=== PATIENT | female | born 1985 | race Caucasian/White ===

== ENCOUNTER 2017-02-05 12:52 | Emergency (ER) | payer SELFPAY ==
[2017-02-05 13:18] VITALS: TEMP 97.7
--- NOTE | 2017-02-05 13:27 | RAD ---
Study: 5 views of the left foot and left ankle. Indication: twisted ankle/foot Comparison: None. Impression: Soft tissue swelling lateral ankle. No ankle fracture. Moderate tibiotalar joint effusion. Oblique fracture distal shaft fifth metatarsal with 2 mm medial displacement distal fracture fragment. Electronically signed by: Rom Real MD 02/05/2017 1:27 PM CDT
--- NOTE | 2017-02-05 13:44 | ED.PDOC ---
History of Present Illness - General Chief Complaint: Lower Extremity Injury Stated Complaint: left ankle pain Time Seen by Provider: 02/05/17 13:03 Source: patient Exam Limitations: no limitations - History of Present Illness Initial Comments: The patient is a 31-year-old female presenting to the emergency room after having tripped and fallen at home while twisting her left foot and ankle. She has previously sprained that ankle before. She has pain primarily to the lateral aspect of the foot. There is some swelling. She appears to be neurovascularly intact. Pulses are palpable. No other injuries. Occurred: just prior to arrival Pain - Lower Extremity: moderate: Left Foot Method of Injury: fell, twisted Improving Factors: nothing, immobilization Worsening Factors: nothing, movement Allergies/Adverse Reactions: Allergies NO KNOWN ALLERGY Allergy (Verified 05/29/16 13:35) Home Medications: Ambulatory Orders Adkmqaazrezud-Xbrn-Ntnicgidgh [Fioricet] 1 ea PO Q8H PRN #21 tab 02/05/17 Review of Systems - Review of Systems Constitutional: States: no symptoms reported EENTM: States: no symptoms reported Respiratory: States: no symptoms reported Cardiology: States: no symptoms reported Gastrointestinal/Abdominal: States: no symptoms reported Genitourinary: States: no symptoms reported Musculoskeletal: States: see HPI Skin: States: no symptoms reported Neurological: States: no symptoms reported All other Systems: No Change from Baseline Past Medical History (General) - Patient Medical History Hx Seizures: No Hx Stroke: No Hx Dementia: No Hx Asthma: No Hx of COPD: No Hx Cardiac Disorders: No Hx Congestive Heart Failure: No Hx Pacemaker: No Hx Hypertension: No Hx Thyroid Disease: No Hx Diabetes: No Hx Gastroesophageal Reflux: No Hx Renal Disease: No Hx Cancer: No Hx of HIV: No Hx Hepatitis C: No Hx MRSA: No - Vaccination History Hx Tetanus, Diphtheria Vaccination: No Hx Influenza Vaccination: No Hx Pneumococcal Vaccination: No - Social History Hx Tobacco Use: No Hx Chewing Tobacco Use: No Hx Alcohol Use: No Hx Substance Use: No Hx Substance Use Treatment: No Hx Depression: No Hx Physical Abuse: No Hx Emotional Abuse: No Hx Suspected Abuse: No - Female History Patient is a Female of Child Bearing Age (10 -59 yrs old): Yes Hx Last Menstrual Period: 09/18/14 Patient : No Expected Date of Delivery:: 09/27/15 Family Medical History - Family History Mother Family History: Unknown Living Status: Still Living Father Name: Bob Johnson Age (years): 61 Living Status: Still Living Hx Family Stroke: Yes - Pt states father has had multiple strokes but does not know dates. Grandparents Name: Karina Johnson Age (years): 85 Living Status: Still Living Hx Family Diabetes: Yes - DM2 Hx Family Cancer: Yes - Breast cancer Brother Name: Bob Johnson Jr. Age (years): 38 Living Status: Still Living Hx Family Stroke: Yes Age of Onset (years of age): 36 Physical Exam - Physical Exam General Appearance: Alert, No apparent distress Eyes, Ears, Nose, Throat: PERRL/EOMI Neck: full range of motion, supple Cardiovascular/Respiratory: normal peripheral pulses, no respiratory distress Back: normal inspection Thigh/Hip: normal inspection, non-tender, no evidence of injury, normal ROM Leg: normal inspection, non-tender, no evidence of injury, normal ROM Knee: normal inspection, non-tender, no evidence of injury, normal ROM Ankle: normal inspection, non-tender, no evidence of injury, normal ROM Foot: other - see history of present illness Neuro/Tendon: normal sensation, normal motor functions, normal tendon functions Mental Status: alert, oriented x 3 Skin: normal color Comments: Vital Signs - 24 hr 02/05/17 13:15 Temperature 97.7 F Pulse Rate [ 89 Left Brachial] Respiratory 16 Rate Blood Pressure 131/76 [Left Arm] O2 Sat by Pulse 96 Oximetry Progress - Progress Progress: 02/05/17 13:44 the patient is a 31-year-old female presenting to the emergency room after having hurt her left foot and ankle during a fall at home. She sustained a spiral fracture of the fifth metatarsal of the left foot. There are no lacerations. The patient will be placed in a walking boot for the next month. If it is failing to start to heal over the next few weeks and she may have to go on crutches. the patient will be written for Fioricet to help with pain control. ER warnings were given for any acute worsening. Follow up with primary care doctor in 2 weeks. Departure - Departure Clinical Impression: Metatarsal fracture Qualifiers: Encounter type: initial encounter Metatarsal bone: fifth Fracture type: closed Fracture alignment: displaced Laterality: left Qualified Code(s): S92.352A - Displaced fracture of fifth metatarsal bone, left foot, initial encounter for closed fracture Disposition: Discharge to Home or Self Care Condition: Fair Departure Forms: ED Discharge - Pt. Copy, Patient Portal Self Enrollment Instructions: Foot Fracture Diet: regular diet Activity: increase activity as tolerated Referrals: KIKO MILLS [Primary Care Provider] - 1-2 Weeks Prescriptions: Vrqckjrxwdjxy-Mjkk-Khvfqdhuac [Fioricet] 1 ea PO Q8H PRN #21 tab PRN Reason: Pain Home Medications: Ambulatory Orders Dgqcminfyowiu-Rfxw-Oschnfwmcn [Fioricet] 1 ea PO Q8H PRN #21 tab 02/05/17 Additional Instructions: the patient is a 31-year-old female presenting to the emergency room after having hurt her left foot and ankle during a fall at home. She sustained a spiral fracture of the fifth metatarsal of the left foot. There are no lacerations. The patient will be placed in a walking boot for the next month. If it is failing to start to heal over the next few weeks and she may have to go on crutches. the patient will be written for Fioricet to help with pain control. ER warnings were given for any acute worsening. Follow up with primary care doctor in 2 weeks.
[2017-02-05 14:38] VITALS: BP 130/58; O2SAT 100
== END 2017-02-05 14:25 | disposition home or self-care (01) ==
LOC: ER 12:52
DX: S92.352A Displaced fracture of fifth metatarsal bone, left foot, initial encounter for closed fracture (principal); W01.0XXA Fall on same level from slipping, tripping and stumbling without subsequent striking against object, initial encounter; Y92.009 Unspecified place in unspecified non-institutional (private) residence as the place of occurrence of the external cause

== ENCOUNTER 2020-01-06 20:51 | Emergency (ER) | payer SELFPAY ==
--- NOTE | 2020-01-06 21:46 | RAD ---
EXAM: XR Left Elbow Complete, 3 Views CLINICAL HISTORY: 34 years old Female; swelling and bruising to left elbow . TECHNIQUE: Frontal, lateral and oblique views of the left elbow. COMPARISON: No relevant prior studies available. FINDINGS: BONES/JOINTS: No acute fracture seen. Normal bony alignment. SOFT TISSUES: Stranding in the subcutaneous fat overlying the posterior distal humerus consistent with ecchymosis. No radiopaque foreign body seen. IMPRESSION: - No acute fracture seen. Thank you for allowing us to participate in the care of this patient. Electronically signed by: Joseph Harmon MD 01/06/2020 9:44 PM CDT
--- NOTE | 2020-01-06 22:42 | ED.PDOC ---
History of Present Illness - General Time Seen by Provider: 01/06/20 22:39 Source: patient Additional Information: 34yo F presents for arm pain. The patient reports she was kicked by a horse near her elbow in the left arm today. She was unloading a horse at the time. She is sore in the area with bruising. She has normal ROM of her elbow. Normal sensation in her hand. No other reported area or pain or injury. - History of Present Illness Occurred: this afternoon Method of Injury: direct blow Improving Factors: nothing Allergies/Adverse Reactions: Allergies NO KNOWN ALLERGY Allergy (Verified 05/29/16 13:35) Home Medications: Ambulatory Orders Qklqgbqewzvct-Fvby-Hngakkxoqk [Fioricet] 1 ea PO Q8H PRN #21 tab 02/05/17 Review of Systems - Review of Systems Constitutional: Denies: chills, fever Respiratory: States: no symptoms reported Cardiology: States: no symptoms reported Gastrointestinal/Abdominal: States: no symptoms reported Musculoskeletal: States: muscle pain. Denies: back pain, joint swelling, neck pain Skin: States: change in color - Bruising. Denies: lesions Past Medical History (General) - Patient Medical History Hx Seizures: No Hx Stroke: No Hx Dementia: No Hx Asthma: No Hx of COPD: No Hx Cardiac Disorders: No Hx Congestive Heart Failure: No Hx Pacemaker: No Hx Hypertension: No Hx Thyroid Disease: No Hx Diabetes: No Hx Gastroesophageal Reflux: No Hx Renal Disease: No Hx Cancer: No Hx of HIV: No Hx Hepatitis C: No Hx MRSA: No - Vaccination History Hx Tetanus, Diphtheria Vaccination: No Hx Influenza Vaccination: No Hx Pneumococcal Vaccination: No - Social History Hx Tobacco Use: No Hx Chewing Tobacco Use: No Hx Alcohol Use: No Hx Substance Use: No Hx Substance Use Treatment: No Hx Depression: No Hx Physical Abuse: No Hx Emotional Abuse: No Hx Suspected Abuse: No - Female History Hx Last Menstrual Period: 09/18/14 Patient : No Expected Date of Delivery:: 07/15/15 Family Medical History - Family History Mother Family History: Unknown Living Status: Still Living Father Name: Bob Elizabeth Age (years): 61 Living Status: Still Living Hx Family Stroke: Yes - Pt states father has had multiple strokes but does not know dates. Grandparents Name: Karina Bramlet Age (years): 85 Living Status: Still Living Hx Family Diabetes: Yes - DM2 Hx Family Cancer: Yes - Breast cancer Brother Name: Bob Johnson Jr. Age (years): 38 Living Status: Still Living Hx Family Stroke: Yes Age of Onset (years of age): 36 Physical Exam - Physical Exam General Appearance: Alert, Comfortable Neck: non-tender, full range of motion, supple Cardiovascular/Respiratory: regular rate, rhythm, no M/R/G, normal peripheral pulses Abdominal Exam: non-tender, other - No rebound or guarding Back Exam: normal inspection, no vertebral tenderness Shoulder Exam: normal inspection, non-tender Elbow/Forearm Exam: normal ROM, pain - Tender to the posterior upper L arm near the elbow with brusing. No elbow joint swelling. Wrist Exam: normal inspection, non-tender Hand Exam: normal inspection, non-tender Neuro/Tendon: normal sensation, normal motor functions, normal tendon functions Skin Exam: warm/dry, other - No open wound or laceration. Progress - Progress Progress: DDX: Fracture, contusion, sprain, strain. 01/06/20 23:13 No acute XR findings. Results discussed. The patient will ice the area at home and monitor closely. She is to follow up with a PCP for persistent symptoms. We discussed s/s that warrant repeat emergency evaluation. It was a pleasure to care for this patient today. 01/06/20 23:15 Harry Huber MD. #[id number] - EKG/XRAY/CT XRAY: elbow - No acute fracture. See formal read. Departure - Departure Clinical Impression: Contusion of elbow, left Qualifiers: Encounter type: initial encounter Qualified Code(s): S50.02XA - Contusion of left elbow, initial encounter Disposition: Discharge to Home or Self Care Condition: Good Instructions: Contusion (DC) Referrals: JUAN FATIMA IV, [facility] [Primary Care Provider] - 1-2 Weeks Home Medications: Ambulatory Orders Zshvwkqiuyksd-Vacm-Qfivpaxscf [Fioricet] 1 ea PO Q8H PRN #21 tab 02/05/17
[2020-01-06 23:59] VITALS: BP 157/89; TEMP 97.2; O2SAT 99
== END 2020-01-06 23:55 | disposition home or self-care (01) ==
LOC: ER 20:51
DX: S50.02XA Contusion of left elbow, initial encounter (principal); W55.12XA Struck by horse, initial encounter; Y92.9 Unspecified place or not applicable

== ENCOUNTER 2020-12-19 17:32 | Emergency (ER) | payer BC ==
[2020-12-19] MEDS: ASPIRIN (CHEWABLE) 81 MG TAB PO ONE (18:04)
--- NOTE | 2020-12-19 18:10 | ED.PDOC ---
History of Present Illness - General Chief Complaint: General Stated Complaint: feels heart racing, difficulty breathing Time Seen by Provider: 12/19/20 17:52 Source: patient, RN notes reviewed, Vital Signs reviewed Exam Limitations: no limitations - History of Present Illness Initial Comments: She has a morbidly obese 34-year-old white female who presents with complaints of palpitations and chest pain. Patient noted palpitations starting at approximately 11 AM this morning and then at approximately 3 PM she started noticing chest pressure with associated shortness of breath. The chest pressure did not radiate anyplace. It was not related to exertion. The pain was constant as well as the palpitations. Nothing seemed to make it better or worse. The chest pressure was in the anterior left chest wall. Pain was moderate in intensity. There was no associated diaphoresis, nausea or vomiting. Timing/Duration: 1-3 hours Severity: moderate Improving Factors: nothing Worsening Factors: nothing Associated Symptoms: chest pain, shortness of breath Allergies/Adverse Reactions: Allergies NO KNOWN ALLERGY Allergy (Verified 05/29/16 13:35) Home Medications: Ambulatory Orders Sertraline HCl [Zoloft] 25 mg PO 12/19/20 Review of Systems - Review of Systems Constitutional: States: no symptoms reported, see HPI. Denies: chills, fever, malaise, weakness EENTM: States: no symptoms reported. Denies: eye pain, blurred vision, double vision Respiratory: States: no symptoms reported. Denies: cough, short of breath, stridor, wheezing Cardiology: States: see HPI, chest pain, palpitations. Denies: syncope Gastrointestinal/Abdominal: States: no symptoms reported. Denies: abdominal pain, diarrhea, nausea, vomiting Genitourinary: States: no symptoms reported. Denies: dysuria, frequency Musculoskeletal: States: no symptoms reported. Denies: back pain, joint pain, neck pain Skin: States: no symptoms reported. Denies: change in color, rash Neurological: States: see HPI, anxiety. Denies: headache, tingling, tremors, weakness Endocrine: States: no symptoms reported. Denies: increased hunger, increased thirst, increased urine Hematologic/Lymphatic: States: no symptoms reported. Denies: blood clots, easy bleeding All other Systems: Reviewed and Negative Past Medical History (General) - Patient Medical History Hx Seizures: No Hx Stroke: No Hx Dementia: No Hx Asthma: No Hx of COPD: No Hx Cardiac Disorders: No Hx Congestive Heart Failure: No Hx Pacemaker: No Hx Hypertension: No Hx Thyroid Disease: No Hx Diabetes: No Hx Gastroesophageal Reflux: No Hx Renal Disease: No Hx Cancer: No Hx of HIV: No Hx Hepatitis C: No Hx MRSA: No - Vaccination History Hx Tetanus, Diphtheria Vaccination: No Hx Influenza Vaccination: No Hx Pneumococcal Vaccination: No - Social History Hx Tobacco Use: No Hx Chewing Tobacco Use: No Hx Alcohol Use: No Hx Substance Use: No Hx Substance Use Treatment: No Hx Depression: No Hx Physical Abuse: No Hx Emotional Abuse: No Hx Suspected Abuse: No - Female History Hx Last Menstrual Period: 09/18/14 Patient : No Expected Date of Delivery:: 07/15/15 Family Medical History - Family History Mother Family History: Unknown Living Status: Still Living Father Name: Bob Johnson Age (years): 61 Living Status: Still Living Hx Family Stroke: Yes - Pt states father has had multiple strokes but does not know dates. Grandparents Name: Karina Elizabeth Age (years): 85 Living Status: Still Living Hx Family Diabetes: Yes - DM2 Hx Family Cancer: Yes - Breast cancer Brother Name: Bob Johnson Jr. Age (years): 38 Living Status: Still Living Hx Family Stroke: Yes Age of Onset (years of age): 36 Physical Exam - Physical Exam General Appearance: Alert, Anxious Eye Exam: bilateral normal Ears, Nose, Throat: hearing grossly normal, normal ENT inspection, normal pharynx Neck: non-tender, full range of motion, supple Respiratory: chest non-tender, lungs clear, normal breath sounds, no respiratory distress, no accessory muscle use Cardiovascular/Chest: normal peripheral pulses, regular rate, rhythm, no edema, no gallop, no JVD, no murmur Peripheral Pulses: radial,right: 2+, radial,left: 2+ Gastrointestinal/Abdominal: normal bowel sounds, non tender, soft, no organomegaly, no pulsatile mass, distended - Secondary to obesity Back Exam: normal inspection, no CVA tenderness, no vertebral tenderness Extremity: normal range of motion, non-tender, normal inspection 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 12/19/20 21:11 Patient's EKG does not show any acute ischemia. Her troponin is negative x2. The patient is markedly better after Ativan. The remainder of her labs are unremarkable. Plan on discharge home with follow-up with her PCP. Of discussed the plan of care with the patient and her they voiced understanding and agreement. Jimmy Arechiga M.D. #[id number] - Results/Orders Results/Orders: EKG performed 19 December 2020 at 1756 hrs.: Normal sinus rhythm at 69 bpm, normal axis deviation, poor R wave progression with late transition, cannot rule out anterior infarct, age indeterminate, abnormal EKG. No comparison EKG available at this time. EXAM DESCRIPTION: Chest,1 View CLINICAL HISTORY:34 years Female, chest pain Comparison: Chest radiograph dated 08/27/2015 FINDINGS: No focal lung consolidation. No pleural effusion. No pneumothorax. Cardiomediastinal silhouette is within normal limits. No acute osseous abnormality. IMPRESSION: No acute cardiopulmonary disease. Electronically signed by: Marcio Samaniego DO 12/19/2020 6:42 PM 12/19/20 17:52 IV Care:Saline Lock per Protoc QSHIFT Telemetry ONCE Sodium Chloride 0.9% (Flush) [Saline Flush Syringe] 3 ml IV PRN PRN 12/19/20 17:53 Pulse Oximetry Assessment DAILY 12/19/20 18:00 EKG STAT 12/20/20 09:00 Pulse Ox Daily Laboratory Results - last 24 hr 12/19/20 12/19/20 12/19/20 18:00 18:00 18:00 WBC 7.6 RBC 4.94 Hgb 13.3 Hct 39.9 MCV 80.6 L MCH 27.0 MCHC 33.4 RDW 14.0 Plt Count 213 MPV 10.0 Absolute Neuts (auto) 4.20 Absolute Lymphs (auto) 2.60 Absolute Monos (auto) 0.50 Absolute Eos (auto) 0.20 Absolute Basos (auto) 0.10 Neutrophils % 55.6 Lymphocytes % 34.1 Monocytes % 6.1 Eosinophils % 3.2 Basophils % 1.0 PT 10.5 INR 1.06 PTT (SP) 27.2 D-Dimer, Quantitative 589.0 H Sodium 137 Potassium 3.8 Chloride 102 Carbon Dioxide 26 Anion Gap 12.8 BUN 19 H Creatinine 0.93 BUN/Creatinine Ratio 20.4 H Random Glucose 102 Serum Osmolality 276.3 Calcium 8.9 Magnesium 1.8 Total Bilirubin 0.4 Direct Bilirubin < 0.1 Indirect Bilirubin 0.3 AST 16 ALT 16 Alkaline Phosphatase 60 Creatine Kinase 64 CK-MB (CK-2) 1.0 CK-MB (CK-2) % Not Reportable Troponin I < 0.02 B-Natriuretic Peptide < 15.0 Serum Total Protein 7.8 Albumin 3.9 TSH 1.92 Urine Color Urine Appearance Urine pH Ur Specific [place] Urine Protein Urine Glucose (UA) Urine Ketones Urine Blood Urine Nitrite Urine Bilirubin Urine Urobilinogen Ur Leukocyte Esterase Urine RBC Urine WBC Ur Epithelial Cells Amorphous Sediment Urine Bacteria Urine Mucus Urine HCG, Qual 12/19/20 12/19/20 12/19/20 18:26 18:26 20:27 WBC RBC Hgb Hct MCV MCH MCHC RDW Plt Count MPV Absolute Neuts (auto) Absolute Lymphs (auto) Absolute Monos (auto) Absolute Eos (auto) Absolute Basos (auto) Neutrophils % Lymphocytes % Monocytes % Eosinophils % Basophils % PT INR PTT (SP) D-Dimer, Quantitative Sodium Potassium Chloride Carbon Dioxide Anion Gap BUN Creatinine BUN/Creatinine Ratio Random Glucose Serum Osmolality Calcium Magnesium Total Bilirubin Direct Bilirubin Indirect Bilirubin AST ALT Alkaline Phosphatase Creatine Kinase CK-MB (CK-2) CK-MB (CK-2) % Troponin I < 0.02 B-Natriuretic Peptide Serum Total Protein Albumin TSH Urine Color Yellow Urine Appearance Clear Urine pH 5.5 Ur Specific [place] >= 1.030 Urine Protein Negative Urine Glucose (UA) Negative Urine Ketones Negative Urine Blood Negative Urine Nitrite Negative Urine Bilirubin Negative Urine Urobilinogen 0.2 Ur Leukocyte Esterase Negative Urine RBC 0 Urine WBC 3-5 H Ur Epithelial Cells 10-20 Amorphous Sediment 1+ Urine Bacteria Rare Urine Mucus Moderate Urine HCG, Qual Negative Vital Signs 12/19/20 12/19/20 17:50 19:15 Temperature 97.6 F Pulse Rate [ 76 73 Left Radial] Respiratory 18 18 Rate Blood Pressure 151/91 118/57 [Right Arm] O2 Sat by Pulse 99 100 Oximetry - EKG/XRAY/CT CT Ordered: No CT Interpretation Call Back: No Departure - Departure Clinical Impression: Palpitations, Chest pressure, Anxiety, Morbid obesity Time of Disposition: 21:12 Disposition: Discharge to Home or Self Care Condition: Good Departure Forms: ED Discharge - Pt. Copy, Patient Portal Self Enrollment Instructions: Palpitations (DC), Chest Pain (DC), Anxiety, Adult (DC), Obesity, Adult (DC) Diet: low fat, low cholesterol Activity: increase activity as tolerated Referrals: JUAN FATIMA IV, [facility] [Primary Care Provider] - 1-5 Days Home Medications: Ambulatory Orders Sertraline HCl [Zoloft] 25 mg PO 12/19/20
--- NOTE | 2020-12-19 18:43 | RAD ---
EXAM DESCRIPTION: Chest,1 View CLINICAL HISTORY:34 years Female, chest pain Comparison: Chest radiograph dated 08/27/2015 FINDINGS: No focal lung consolidation. No pleural effusion. No pneumothorax. Cardiomediastinal silhouette is within normal limits. No acute osseous abnormality. IMPRESSION: No acute cardiopulmonary disease. Electronically signed by: Marcio Samaniego DO 12/19/2020 6:42 PM CLIENT SPECIALIST
[2020-12-19] MEDS: SODIUM CHLORIDE 0.9% (FLUSH) 10 ML SYG IV PRN (19:08)
[2020-12-19 21:29] VITALS: BP 115/75; TEMP 97.8; O2SAT 97
== END 2020-12-19 21:20 | disposition home or self-care (01) ==
LOC: ER 17:32
DX: R07.89 Other chest pain (principal); R00.2 Palpitations; F41.9 Anxiety disorder, unspecified; E66.01 Morbid (severe) obesity due to excess calories; R06.02 Shortness of breath; Z68.42 Body mass index [BMI] 45.0-49.9, adult
CPT/HCPCS: 36415; 71045; 80048; 80076; 81001; 81025; 82550; 82553; 83880; 84443; 84484; 85025; 85379; 85610; 85730; 93005; J2060